=== PATIENT | female | born 1970 | race Two or more races ===

== ENCOUNTER 2024-08-17 09:45 | Day surgery (SDC) | payer OTHER ==
[2024-08-15 08:51] VITALS: BP 140/80
[2024-08-15 09:01] LABS: PH,URINE 5.5 (5.0-8.0); URINE APPEARANCE Cloudy; URINE BILIRRUBIN Negative (NEGATIVE); URINE BLOOD Large; URINE COLOR Yellow; URINE GLUCOSE Negative (NEGATIVE); URINE KETONE Trace (NEGATIVE); URINE LEUKOCYTE Small; URINE NITRATE Negative; URINE PROTEIN Trace (NEGATIVE); URINE UROBILINOGEN 0.2 E.U./dl
[2024-08-15 09:05] LABS: URINE BACTERIA 269.2 uL (0.0-1933); URINE EPITHELIAL CELLS 20.5 uL (0.0-38.8); URINE WBC 93.8 uL (0.0-23.2)
[2024-08-15 09:13] LABS: BASO % 0.3 % (0.1-1.2); HEMOGLOBIN 13.5 g/dL (11.2-15.7); LYMPH # 1.97 (1.18-3.74); LYMPH % 18.8 % (19.3-53.1); MEAN CORPUSCULAR HEMOGLOBIN 30.1 pg (25.6-32.2); MONO # 0.89 (0.24-0.82); MONO % 8.5 % (4.7-12.5); NEUT # 7.47 (1.56-6.13); NEUT % 71.1 % (34.0-71.1); PLATELET COUNT 377 K/uL (163-369); RED BLOOD COUNT 4.49 M/uL (3.93-5.22); RED CELL DISTRIBUTION WIDTH 11.4 % (11.6-14.4)
[2024-08-15 09:22] LABS: URINE CAST 1.17 uL (0.0-1.40)
[2024-08-15 09:41] LABS: INR 0.98; PROTHROMBIN TIME 10.7 SECONDS (9.0-11.5)
[2024-08-15 09:57] LABS: ALBUMIN 4.3 gm/dL (3.4-5.0); BILIRUBIN TOTAL 0.48 mg/dL (0.3-1.2); CALCIUM 9.7 mg/dL (8.5-10.1); CREATININE SERUM 0.82 mg/dL (0.55-1.02); GFR 72.11; GLOBULINA 3.4 G/DL (2.4-3.5); POTASSIUM 3.84 mEq/L (3.5-5.1); TOTAL PROTEIN 7.7 gm/dL (6.4-8.2)
[~2024-08-17] VITALS: Ht 172.7 cm; Wt 83.5 kg
[~2024-08-17 09:45] MED LIST: CELECOXIB 200 MG CAPSULE PO ONE; HYOSCYAMINE SULFATE 0.125 MG TAB.SUBL ONE; MEGESTROL ACETA40 MG PO; METOCLOPRAMIDE HCL 5 MG/ML VIAL ONE; ROSUVASTATIN CA10 MG PO; SIMETHICONE 125 MG CAPSULE PO ONE; ZESTRIL5 MG PO
[2024-08-17] MEDS ORDERED: POVIDONE-IODINE 118 ML BOTT TOP ONE (12:48)
[2024-08-17] MEDS ORDERED: KETOROLAC TROMETHAMINE 30 MG VIAL IV STA (13:59)
== END 2024-08-17 18:35 | disposition home or self-care (01) ==
LOC: CIR.AMB 09:45
PROVIDERS: ATTEND Obstetrics & Gynecology
DX: N95.0 Postmenopausal bleeding (principal); N84.0 Polyp of corpus uteri; D25.9 Leiomyoma of uterus, unspecified

== ENCOUNTER 2024-11-20 09:40 | Inpatient (IN) | payer OTHER ==
[~2024-11-20] VITALS: Ht 172.7 cm; Wt 71.2 kg
[~2024-11-20 09:40] MED LIST changes: -CELECOXIB 200 MG CAPSULE PO ONE; -HYOSCYAMINE SULFATE 0.125 MG TAB.SUBL ONE; -METOCLOPRAMIDE HCL 5 MG/ML VIAL ONE; -SIMETHICONE 125 MG CAPSULE PO ONE
--- NOTE | 2024-11-20 10:10 | NUR ---
PTE ALERTA Y ORIENTADA X3, DE LA .MARIAM JACKSON REFIERE DOLOR ABDOMINAL Y CONSTIPACION HACE 1 SEMANA. REFIERE DESDE ANOCHE NO PUEDE ORINAR ALL Y LA ORINA TIENE MAL OLOR. SE EYAL SV Y SE UBICA.
[2024-11-20] MEDS ORDERED: CEFTRIAXONE SODIUM 2,000 MG VIAL IV ONE (10:30)
[2024-11-20] MEDS ORDERED: 0.9 % SODIUM CHLORIDE 1,000 ML IV SCH ×2 (10:30→14:45)
--- NOTE | 2024-11-20 11:00 | NUR ---
PACIENTE EVALUADO POR DR DUVALL QUIEN ORDENA TRATAMIENTO MEDICO. SUZANNE MARS LE ORIENTA A PACIENTE SOBRE EL MISMO Y REFIERE ENTNDER, LE COLECTA MUESTRAS, LE CANALIZA Y LE ADMINSITRA MEDICAMENTOS BAJO MEDIDAS ASEPTICAS, LE HACE ENTREGA A PACIENTE ENVASE PARA COLECTA DE U/A Y U/C.
[2024-11-20 11:13] LABS: BASO % 0.4 % (0.1-1.2); EOS # 0.15 (0.04-0.54); EOS % 1.1 % (0.7-7.0); LYMPH # 1.79 (1.18-3.74); LYMPH % 13.0 % (19.3-53.1); MEAN PLATELET VOLUME 8.60 fl (9.4-12.4); MONO # 1.04 (0.24-0.82); MONO % 7.6 % (4.7-12.5); NEUT # 10.67 (1.56-6.13); NEUT % 77.5 % (34.0-71.1); RED CELL DISTRIBUTION WIDTH 11.8 % (11.6-14.4)
[2024-11-20 11:50] LABS: URINE APPEARANCE Cloudy; URINE BILIRRUBIN Negative (NEGATIVE); URINE BLOOD Moderate; URINE COLOR Yellow; URINE GLUCOSE Negative (NEGATIVE); URINE KETONE Trace (NEGATIVE); URINE LEUKOCYTE Large; URINE NITRATE Positive; URINE PROTEIN Negative (NEGATIVE); URINE UROBILINOGEN 0.2 E.U./dl
[2024-11-20 11:51] LABS: URINE EPITHELIAL CELLS 16.3 uL (0.0-38.8); URINE RBC 20.6 uL (0.0-20.8); URINE WBC 1225.1 uL (0.0-23.2)
[2024-11-20 11:55] LABS: URINE BACTERIA > 9821.5 uL (0.0-1933); URINE CAST 0.14 uL (0.0-1.40)
[2024-11-20 12:07] LABS: ALT/SGPT 24.0 U/L (12-78); AST/SGOT 15.0 U/L (15-37); BILIRUBIN TOTAL 0.65 mg/dL (0.3-1.2); BUN CREA RATIO 32.0 (7.0-25.0); CREATININE SERUM 0.56 mg/dL (0.55-1.02); GFR 111.98; GLOBULINA 2.9 G/DL (2.4-3.5); GLUCOSE FASTING 92.0 mg/dL (65-100); OSMOLALITY SERUM 279.0 MOSM/KG (275-295)
[2024-11-20] MEDS ORDERED: POLYETHYLENE GLYCOL 3350 17 GM BLIST.PACK PO SCH (14:43)
[2024-11-20] MEDS ORDERED: DOCUSATE SODIUM 100MG CAP PO SCH (14:43)
[2024-11-20] MEDS ORDERED: MORPHINE SULFATE 4 MG/ML CARTRIDGE IV PRN (14:45)
[2024-11-20] MEDS ORDERED: HYDROCORTISONE 2.5% 30 GM TUBE RECTAL SCH (17:00)
[2024-11-20] MEDS ORDERED: HYDROCORTISONE ACETATE 25 MG/SUPP.RECT SUPP.RECT RECTAL SCH (17:08)
[2024-11-20] MEDS ORDERED: PEG3350/SOD SULF,BICARB,CL/KCL 4,000 ML GALLON PO NR (19:00)
[2024-11-20 19:01] VITALS: BP 147/81
[2024-11-20] MEDS ORDERED: FAMOTIDINE/PF 20 MG in 0.9 % SODIUM CHLORIDE 100 ML IV SCH (21:00)
[2024-11-21 02:24] VITALS: BP 136/85; O2SAT 98
[2024-11-21] MEDS ORDERED: ONDANSETRON HCL 4 MG in DEXTROSE 5 % IN WATER 50 ML IV PRN (07:45)
[2024-11-21] MEDS ORDERED: ENALAPRILAT DIHYDRATE 1.25 MG/ML VIAL IV PRN (07:45)
[2024-11-21 08:33] VITALS: BP 122/79; O2SAT 99
[2024-11-21] MEDS ORDERED: CEFTRIAXONE SODIUM 2,000 MG in DEXTROSE 5 % IN WATER 100 ML IV SCH (09:00)
[2024-11-21 16:17] VITALS: BP 137/80; O2SAT 99
[2024-11-21] MEDS ORDERED: NYSTATIN 30 GM,ZINC OXIDE 30 GM,SILVER SULFADIAZINE 50 GM TOP SCH (19:45)
[2024-11-22 03:12] VITALS: BP 118/71; O2SAT 98
[2024-11-22 06:16] LABS: BASO % 0.4 % (0.1-1.2); EOS # 0.21 (0.04-0.54); EOS % 2.0 % (0.7-7.0); LYMPH # 1.59 (1.18-3.74); LYMPH % 15.0 % (19.3-53.1); MEAN PLATELET VOLUME 8.70 fl (9.4-12.4); MONO # 1.01 (0.24-0.82); MONO % 9.5 % (4.7-12.5); NEUT # 7.75 (1.56-6.13); NEUT % 72.8 % (34.0-71.1); RED CELL DISTRIBUTION WIDTH 11.7 % (11.6-14.4)
[2024-11-22 06:48] LABS: ALT/SGPT 16.0 U/L (12-78); AST/SGOT 9.0 U/L (15-37); BILIRUBIN TOTAL 0.48 mg/dL (0.3-1.2); BUN CREA RATIO 13.0 (7.0-25.0); CREATININE SERUM 0.54 mg/dL (0.55-1.02); GFR 116.78; GLOBULINA 2.3 G/DL (2.4-3.5); GLUCOSE FASTING 89.0 mg/dL (65-100); OSMOLALITY SERUM 281.0 MOSM/KG (275-295)
[2024-11-22 09:36] VITALS: BP 133/74
[2024-11-22 19:17] VITALS: BP 126/80; O2SAT 97
[2024-11-23 03:28] VITALS: BP 126/77; O2SAT 97
[2024-11-23 06:15] LABS: BASO % 0.5 % (0.1-1.2); EOS # 0.22 (0.04-0.54); EOS % 2.4 % (0.7-7.0); LYMPH # 1.61 (1.18-3.74); LYMPH % 17.2 % (19.3-53.1); MEAN PLATELET VOLUME 9.00 fl (9.4-12.4); MONO # 0.88 (0.24-0.82); MONO % 9.4 % (4.7-12.5); NEUT # 6.54 (1.56-6.13); NEUT % 70.1 % (34.0-71.1); RED CELL DISTRIBUTION WIDTH 11.7 % (11.6-14.4)
[2024-11-23 06:54] LABS: BUN CREA RATIO 17.0 (7.0-25.0); CREATININE SERUM 0.47 mg/dL (0.55-1.02); GFR 137.07; GLUCOSE FASTING 78.0 mg/dL (65-100); OSMOLALITY SERUM 280.0 MOSM/KG (275-295)
[2024-11-23 08:58] VITALS: BP 134/78
[2024-11-23] MEDS ORDERED: POTASSIUM CHLORIDE IN WATER 100 ML IV NR (11:15)
[2024-11-23 18:38] VITALS: BP 152/92
== END 2024-11-23 20:42 | disposition home or self-care (01) | DRG 690 ==
LOC: ER 09:40 → MEDJ 14:45
PROVIDERS: General Practice; Internal Medicine; Internal Medicine Infectious Disease; ADMIT Internal Medicine; ATTEND Internal Medicine
PROC: BW21ZZZ Computerized Tomography (CT Scan) of Abdomen and Pelvis (ICD-10-PCS; principal; 2024-11-20)
DX: N39.0 Urinary tract infection, site not specified (principal); K59.09 Other constipation; E78.49 Other hyperlipidemia